=== PATIENT | female | born 1990 ===

== ENCOUNTER 2018-10-15 19:29 | Emergency (ER) | payer OTHER ==
[~2018-10-15] VITALS: Ht 160 cm; Wt 72.7 kg
[2018-10-15 19:33] VITALS: BP 124/67; TEMP 98.7
[2018-10-15 20:34] VITALS: PULSE 80
== END 2018-10-15 20:38 | disposition home or self-care (01) ==
LOC: COL.ER 19:29
DX: S90.32XA Contusion of left foot, initial encounter (principal); W22.8XXA Striking against or struck by other objects, initial encounter; Y92.009 Unspecified place in unspecified non-institutional (private) residence as the place of occurrence of the external cause